=== PATIENT | male | born 1985 | race Caucasian/White ===

== ENCOUNTER 2018-01-27 02:11 | Emergency (ER) | payer MEDICAID ==
[2018-01-27] MEDS: LORAZEPAM 1 MG TAB PO ×2 (03:51→03:54)
== END 2018-01-27 04:45 | disposition home or self-care (01) ==
LOC: E/R 02:11
DX: F41.9 Anxiety disorder, unspecified (principal); R07.89 Other chest pain
CPT/HCPCS: 99283-25; Z7502

== ENCOUNTER 2018-02-18 20:41 | Emergency (ER) | payer MEDICAID ==
[2018-02-18] MEDS ORDERED: IBUPROFEN 600 MG TAB PO (21:30)
[2018-02-18] MEDS: KETOROLAC 60 MG INJ IM (21:44)
== END 2018-02-19 01:12 | disposition home or self-care (01) ==
LOC: FTE 02-19 01:12
DX: S82.66XA Nondisplaced fracture of lateral malleolus of unspecified fibula, initial encounter for closed fracture (principal); W50.0XXA Accidental hit or strike by another person, initial encounter; Y92.322 Soccer field as the place of occurrence of the external cause
CPT/HCPCS: 29505; 73590; 73610; 73630-LT; 99283-25